=== PATIENT | female | born 1950 ===

== ENCOUNTER 2023-02-23 16:04 | Outpatient (RCR) | payer MEDICARE, OTHER, SELFPAY ==
--- NOTE | 2023-02-23 17:16 | OPREHPOC ---
Outpatient Therapy Plan of Care This is a Multidisciplinary Plan of Care that may contain components documented by all disciplines (PT, OT, and ST.) PT Problem 1 PT Problem #1 Knowledge Deficit PT Goal 1 Goal 1. independent and compliant with HEP Target Visit 2 PT Problem 2 PT Problem #2 Impaired Strength PT Goal 1 Goal 1. improve bilateral hip abd strength to 4/5 2. improve core strength to hold PPT with unilateral marches in supine Target Visit 4 PT Problem 3 PT Problem #3 Pain PT Goal 1 Goal 1. no pain in the lower back 2. no tenderness to palpation of the R lumbar paraspinals Target Visit 4
--- NOTE | 2023-02-23 17:16 | PTOPEVAL1 ---
Assessment and note entered by JT File, PT Evaluation Information Assessment Status Evaluation Diagnosis lumbago Onset 01/05/23 Subjective Information patient reports she injured the lower back when reaching up high overhead for a potted plant without a ladder. she reports after this, her back was stiff, and she would get pain with coughing. she reports the pain when she coughs has been gone the past few nights. she reports she saw her PCP on 02/21/23. she reports she is doing well since this visit with her PCP. Reported Pain Level Pain Score 1: Self Report Assessment PT Clinical Summary mrs. carmona is a 72 yo woman who presents to skilled PT for evaluation and treatment of R side lower back pain. she presents with decreasing symptoms over this week since seeing her PCP. however, she continues to have tendeness in the R side paraspinals, weak hips, weak core, and poor flexibility/posture. she would benefit from continued skilled PT to address her objective/ functional deficits and progress towards a return to her prior level functional activities/quality of life. Plan of Care Interventions Electrical Stimulation,Hot Pack/Cold Pack,Manual Therapy,Neuro Re-education,Patient/Caregiver Educati,Therapeutic Activities,Therapeutic Exercise PT Services Indicated Yes Treatment Frequency and 2x weekly for 4 visits Duration These treatments will address the objective and functional deficits as defined above. The patient will be advanced safely and appropriately in order for the patient to progress towards his/her prior level of function. Additional exercises will be introduced and as well as a comprehensive home exercise program upon discharge, if needed, ?to ensure carryover of functional gains achieved in the clinic. This treatment plan has been reviewed and agreement upon by the patient.
--- NOTE | 2023-03-07 09:21 | OPREHPOC ---
Outpatient Therapy Plan of Care This is a Multidisciplinary Plan of Care that may contain components documented by all disciplines (PT, OT, and ST.) PT Problem 1 PT Problem #1 Knowledge Deficit PT Goal 1 Goal 1. independent and compliant with HEP Target Visit 2 Progress Met PT Problem 2 PT Problem #2 Impaired Strength PT Goal 1 Goal 1. improve bilateral hip abd strength to 4/5 2. improve core strength to hold PPT with unilateral marches in supine Target Visit 4 Progress Met PT Problem 3 PT Problem #3 Pain PT Goal 1 Goal 1. no pain in the lower back 2. no tenderness to palpation of the R lumbar paraspinals Target Visit 4 Progress Met
--- NOTE | 2023-03-07 09:21 | PTOPDC ---
Assessment and note entered by Beverly Aguayo DPT Evaluation Information Assessment Status Re-evaluation Diagnosis lumbago Onset 01/05/23 Subjective Information patient reports she injured the lower back when reaching up high overhead for a potted plant without a ladder. she reports after this, her back was stiff, and she would get pain with coughing. she reports the pain when she coughs has been gone the past few nights. she reports she saw her PCP on 02/21/23. she reports she is doing well since this visit with her PCP. Reported Pain Level Pain Score 0: Self Report Assessment PT Clinical Summary Mrs. Villasenor has been seen for 4 visits of skilled PT with all goals met. She reports that she has been able to return to all ADLs at [facility]. She reports independence with HEP and is appropriate for DC at this time. Plan of Care PT Services Indicated No
== END 2023-03-07 11:51 | disposition home or self-care (01) ==
LOC: CHSPT 16:04
DX: M54.50 Low back pain, unspecified (principal)
CPT/HCPCS: 97014; 97110; 97140; 97161; G0283